=== PATIENT | male | born 1965 | race Caucasian/White ===

== ENCOUNTER → 2016-11-04 | Outpatient (CLI) | payer OTHER ==
[2016-11-04 19:22] LABS: Basophils # (A) 0.1 k/uL (0-0.2); Basophils % (A) 1 %; CH 30.2; CHCM 33.4; Eosinophils # (A) 0.1 k/uL (0-0.7); Eosinophils % (A) 3 %; HCT 42.8 % (39.0-53.0); HDW 2.46; HGB 14.2 gm/dL (13.0-17.5); Luc % (Auto) 2; Lymphocytes # (A) 1.3 k/uL (1.0-4.8); Lymphocytes % (A) 31 %; MCH 30.1 pg (25.0-35.0); MCHC 33.1 g/dL (31.0-37.0); MCV 90.8 fL (80.0-100.0); Monocytes # (A) 0.2 k/uL (0-1.0); Monocytes % (A) 4 %; Neutrophils # (A) 2.5 k/uL (1.3-7.7); Neutrophils % (A) 58 %; RBC 4.71 m/uL (4.30-5.90); RDW 13.2 % (11.5-15.5); WBC 4.2 k/uL (3.8-10.6); WBC (Perox) 4.22
[2016-11-04 19:36] LABS: ALT 36 U/L (21-72); AST 33 U/L (17-59); Alkaline Phosphatase 73 U/L (38-126); Anion Gap 11 mmol/L; Blood Urea Nitrogen 15 mg/dL (9-20); Calcium 9.5 mg/dL (8.4-10.2); Carbon Dioxide 26 mmol/L (22-30); Chloride 105 mmol/L (98-107); Cholesterol 215 mg/dL (<200); Glucose 93 mg/dL (74-99); HDL Cholesterol 44 mg/dL (40-60); Non-African American GFR(MDRD) >60 (>60 ml/min/1.73 sqM); Potassium 4.7 mmol/L (3.5-5.1); Sodium 142 mmol/L (137-145); Total Bilirubin 0.8 mg/dL (0.2-1.3); Total Protein 7.5 g/dL (6.3-8.2); Triglycerides 150 mg/dL (<150)
== END | disposition home or self-care (01) ==
LOC: MMGSC 12:35
PROVIDERS: ATTEND Family Medicine
DX: Z00.00 Encounter for general adult medical examination without abnormal findings (principal)
CPT/HCPCS: 84439; 80053; 80061; 84443; 85025; 36415; G0103

== ENCOUNTER 2017-04-20 10:20 | Day surgery (SDC) | payer OTHER ==
[2017-04-16 16:25] VITALS: BMI 32.5
[~2017-04-20 10:20] MED LIST: LACTATED RINGERS 1,000 ML IV SCH
[2017-04-20] MEDS ORDERED: LIDOCAINE 1% 20 ML VIAL (10MG/ML) FOR IV START INTRADERMA ONE (10:33)
[2017-04-20 10:48] VITALS: RESP 16; TEMP 97.1
[2017-04-20] MEDS ORDERED: PROPOFOL 10 MG/ML 20 ML VIAL IV ONE (12:16)
[2017-04-20] MEDS ORDERED: LIDOCAINE 1% INJ 10MG/ML (20 ML MDV) ONE (12:16)
--- NOTE | 2017-04-20 12:52 | P.PCN ---
Date of Procedure: 04/20/17 Procedure(s) Performed: Procedure: Colonoscopy and polypectomy. Preoperative diagnosis: Screening for neoplasia. Postoperative diagnosis: Distal sigmoid polyp snared but no large polyps or cancer. Preparation: HalfLytely prep. Sedation: Was provided by anesthesia. Brief clinical history: The patient is a 51-year-old male who is scheduled for this evaluation for screening for neoplasia age being his risk factor. He had no prior colonoscopy. He has no abdominal complaints, bleeding or anemia. No family history of colon cancer. Procedure: With the patient on his left lateral decubitus position and after informed consent and adequate sedation, the perianal area was inspected and it did not show any fissures or fistulas. There were no masses felt on digital rectal examination. The Olympus CFQ 160L video colonoscope was then inserted in the rectum in the usual fashion and advanced to the cecum. The preparation was good. The mucosa appeared healthy. In the distal sigmoid, close to the rectosigmoid junction, there was a small to medium-sized polyp which I snared and retrieved by suction but there were no large polyps or cancer. I retroflexed the endoscope in the rectum before the endoscope was withdrawn. The patient tolerated the procedure well. Plan: The patient was reassured. He will follow up with you as planned and I recommended a repeat exam in 5 years.
[2017-04-20 13:07] VITALS: BP 142/84; PULSE 70
== END 2017-04-20 13:40 | disposition home or self-care (01) ==
LOC: ORWHC2ENDO 10:20
DX: Z12.11 Encounter for screening for malignant neoplasm of colon (principal); D12.5 Benign neoplasm of sigmoid colon; F32.9 Major depressive disorder, single episode, unspecified; Z79.899 Other long term (current) drug therapy
CPT/HCPCS: 45385; 88305; J2001; J2704

== ENCOUNTER → 2024-09-13 | Outpatient (CLI) | payer SELFPAY ==
--- NOTE | 2024-09-13 07:19 | MR ---
EXAMINATION TYPE: MR Prostate wo/w con DATE OF EXAM: 09/13/2024 COMPARISON: None. INDICATION: Elevated PSA. PSA: 7.65 ng/ml on April 13, 2024 Recent Biopsy and Date: none Pathology Report (If Applicable): n/a TECHNIQUE: Examination was performed using a 3T MRI without an endorectal coil. Multiparametric imaging was perf ormed with T2 mutliplanar sequences, axial diffusion weighted imaging and dynamic contrast enhanced i maging, utilizing 12 mL intravenous Gadobutrol gadolinium contrast. FINDINGS: PROSTATE VOLUME: 3.2 cm SI x 3.5 cm AP x 4.6 cm LR Vol= 27.0 cc PSA DENSITY: 0.28 ng/ml/cc Normal size prostate gland is present. No areas of marked hypointensity in the peripheral zone on ADC mapping. No areas of focal increased signal on diffusion-weighted imaging. Transitional zone shows b ilateral nodularity without a suspicious T2 hypointense area. Highest PI-RADS equals 2. Seminal vesicles symmetric and within normal limits. Urinary bladder shows no suspicious wall thic kening or trabeculation. No destructive osseous lesions are seen. IMPRESSION: Normal size prostate. A focus of clinically significant cancer is not identified. Highest Assessment Category: 2 MRI Stage: T0 N0 M0 based on review of pelvic images. False negative rates for MRI range from 5-20% depending on risk profile. Assessment Categories: 1 ? Very low (clinically significant cancer is highly unlikely to be present) 2 ? Low (clinically significant cancer is unlikely to be present) 3 ? Intermediate (the presence of clinically significant cancer is equivocal) 4 ? High (clinically significant cancer is likely to be present) 5 ? Very high (clinically significant cancer is highly likely to be present) [facility], , 09/13/2024 7:16 AM
== END | disposition home or self-care (01) ==
LOC: RADMRIMAIN 05:55
PROVIDERS: ATTEND Urology
DX: R97.20 Elevated prostate specific antigen [PSA] (principal)
CPT/HCPCS: 72197; A9585